=== PATIENT | female | born 1990 | race Caucasian/White ===

== ENCOUNTER 2021-09-11 19:27 | Emergency (ER) | payer OTHER, SELFPAY ==
[2021-09-11] VITALS (8 sets, daily range): BP systolic 115–131; BP diastolic 59–70; PULSE 77–103; RESP 17–31; TEMP 36.7; O2SAT 97–100; BMI 21.7
--- NOTE | 2021-09-11 19:52 | DI.RAD.S_ITS ---
PROCEDURE: XR CHEST 1V INDICATIONS: chest pain TECHNIQUE: One view of the chest was acquired. COMPARISON: None. FINDINGS: Surgical changes and devices: None. Lungs and pleura: Lungs are clear. No pleural effusions or pneumothorax. Mediastinum: Mediastinal contours appear normal. Heart size is normal. Bones and chest wall: No suspicious bony lesions. Overlying soft tissues appear unremarkable. IMPRESSION: No acute cardiopulmonary abnormality. Dictated by: Tenzin Nixon M.D. on 09/11/2021 at 20:39 Approved by: Tenzin Nixon M.D. on 09/11/2021 at 20:40
[2021-09-11 20:05] LABS: Alanine Aminotransferase 453 IU/L (<35); Albumin 4.8 g/dL (3.5-5.0); Albumin Globulin Ratio 1.5 (1.0-2.8); Alkaline Phosphatase 226 U/L (38-126); Aspartate Aminotransferase 358 IU/L (14-36); BUN Creatinine Ratio 15.9 (6-22); Bilirubin Total 1.7 mg/dL (0.2-1.3); Blood Urea Nitrogen 11 mg/dL (7-17); Calcium 9.9 mg/dL (8.4-10.2); Carbon Dioxide 29 mmol/L (22-32); Chloride 106 mmol/L (98-107); Creatine Kinase 32 U/L (30-135); Estimated Glomerular Filt Rate > 60.0 mL/min (>60); Globulin 3.1 g/dL (1.7-4.1); Glucose 115 mg/dL (70-100); HEMOLYSIS < 15 (0-50); Lipase 160 U/L (23-300); Magnesium 2.2 mg/dL (1.6-2.3); Potassium 3.6 mmol/L (3.4-5.1); Sodium 142 mmol/L (137-145); Total Protein 7.9 g/dL (6.3-8.2)
[2021-09-11 20:12] LABS: Add Manual Diff / Slide Review NO; Basophils Absolute Auto 200 /uL (0-100); Basophils Percent Auto 2.7 % (0-2); Eosinophils Absolute Auto 100 /uL (0-450); Eosinophils Percent Auto 2.5 % (2-4); Hematocrit 40.6 % (36-46); Hemoglobin 13.7 g/dL (12.0-16.0); Lymphocytes Absolute Auto 1100 /uL (1100-4500); Lymphocytes Percent Auto 19.5 % (25-40); Mean Corpuscular HGB Conc 33.8 % (30-36); Mean Corpuscular Hemoglobin 26.8 PG (26-34); Mean Corpuscular Volume 79.2 fL (80-100); Monocytes Absolute Auto 400 /uL (0-900); Monocytes Percent Auto 7.5 % (3-14); Neutrophils Absolute Auto 3900 /uL (1500-7000); Neutrophils Percent Auto 67.8 % (50-75); Platelet Count 209 X10^3/uL (150-400); Red Blood Cell Count 5.12 X10^6/uL (4.0-5.2); Red Cell Distribution Width 12.7 % (11.6-14.8); White Blood Cell Count 5.7 X10^3/uL (4.5-11.0)
[2021-09-11 20:17] LABS: Troponin I < 0.012 ng/mL (0.01-0.034)
--- NOTE | 2021-09-11 21:37 | ED.CHESTPAIN ---
HPI - Chest Pain General Chief Complaint: Chest Pain Stated Complaint: severe chest pain x24 hours/intermittent x2 months Time Seen by Provider: 09/11/21 21:22 Source: patient Mode of arrival: Ambulatory Limitations: no limitations History of Present Illness HPI narrative: Patient is a 30-year-old female who presents with chest pain. She says she has had off and on since February but has been worse over the last 24-30 hours. It is constant sign or of her chest. She says eating makes it worse. Sometimes radiates down into her stomach. She denies any nausea. She says sometimes the pain is so bad that she feels short of breath but generally does not feel short of breath with exertion. She is always able to swallow and drink but it can her immediately after she eats or up to 10 hours after she eats. Been taking ibuprofen without any relief. She is tearful. She denies any productive cough. She has no travel, and does not take control. Related Data Allergies Allergy/AdvReac Type Severity Reaction Status Date / Time neomycin Allergy Hives Verified 09/11/21 19:37 Review of Systems Review of Systems Narrative: GENERAL: Denies chills, fatigue, malaise, fever, sweats, travel HEENT: Denies sinus pain, ear pain, sore throat, difficulty swallowing, neck pain RESPIRATORY: Denies dyspnea, cough, wheezing, hemoptysis, sputum. CARDIOVASCULAR: See HPI GASTROINTESTINAL: Denies nausea, vomiting, abdominal pain, diarrhea, constipation, melena. : Denies dysuria, frequency, incontinence, hematuria, urinary retention, flank pain. MUSCULOSKELETAL: Denies weakness, joint pain, or bony pain SKIN: No rash, no erythema, no pruritus NEUROLOGIC: Denies weakness, dizziness, headache, numbness, change in speech, confusion PSYCHIATRIC: No concerning psychosocial issues. 12 point review of systems is negative except for those stated above and HPI Patient History Medical History Graves disease Social History Smoking Status: Never smoker Smoking Status: Never smoker Substance Use Type: does not use Exam Initial Vital Signs Initial Vital Signs: Vital Signs Temperature 98.0 F 09/11/21 19:37 Pulse Rate 86 09/11/21 19:37 Respiratory Rate 17 09/11/21 19:37 Blood Pressure 120/63 09/11/21 19:37 Pulse Oximetry 100 09/11/21 19:37 GENERAL: Alert tearful 30-year-old female and in no acute distress. HEENT: Head atraumatic,EOMI, pupils reactive, face symmetric, moist mucous membranes CARDIOVASCULAR: Regular rate and rhythm without murmurs, rubs or gallops. RESPIRATORY: Breath sounds equal bilaterally, no wheezes rales or rhonchi. ABDOMEN: Soft, nontender. Normoactive bowel sounds all 4 quadrants. No guarding or rebound. Negative Aranda sign EXTREMITIES: Normal range of motion, no clubbing or edema. Neurovascularly intact NEUROLOGICAL: Alert and oriented x4.Normal gait and speech. SKIN: Warm, dry, no laceration, no petechiae, no rashes or lesions. Scores HEART Score Heart Score history: Slightly Suspicious Heart Score EKG: Normal Heart Score Age: < 45 years old Heart Score risk factors: No known risk factors Heart Score troponin: < or = to normal limit Heart Score Total: 0 PERC Score Age greater than or equal to 50 years: No Heart rate greater than or equal to 100 bpm: No Room Air O2 Sat less than 95%: No Unilateral leg swelling: No Recent trauma or surgery: No Hemoptysis: No Prior PE or DVT: No Hormone Use: No Total PERC Score: 0 Course Orders Ordered: ED Orders 09/11/21 19:38 Complete Blood Count AUTO DIFF Stat Comprehensive Metabolic Panel Stat D Dimer Stat Lipase Stat Magnesium Stat Troponin & CK Cardiac Panel Stat EKG-12 Lead Stat 09/11/21 19:52 XR chest 1V Stat 09/11/21 21:55 Trop I [Troponin I] Stat 09/11/21 22:21 US abdomen limited Stat 09/11/21 22:38 EKG-12 Lead Stat 09/12/21 00:02 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) Stat 09/12/21 00:52 Urine Culture Stat Urine Microscopic Stat Discontinued Medications Sodium Chloride (Normal Saline 0.9%) 1,000 mls @ 1,000 mls/hr IV BOLUS ONE Stop: 09/11/21 22:56 Last Infusion: 09/11/21 23:15 Dose: 0 mls/hr Documented by: Admin: 09/11/21 22:08 Dose: 1,000 mls/hr Documented by: KWADWO Lactated Ringer's (Lactated Ringers) 1,000 mls @ 125 mls/hr IV CONT JAKE Last Admin: 09/11/21 23:58 Dose: 125 mls/hr Documented by: KWADWO Morphine Sulfate (Morphine 4 Mg/Ml Inj) 4 mg IV NOW ONE Stop: 09/11/21 21:37 Last Admin: 09/11/21 21:49 Dose: 4 mg Documented by: KWADWO Ondansetron HCl (Ondansetron 4 Mg/2 Ml Inj) 4 mg IV NOW ONE Stop: 09/11/21 23:54 Last Admin: 09/11/21 23:58 Dose: 4 mg Documented by: KWADWO Ondansetron HCl (Ondansetron 4 Mg/2 Ml Inj) 4 mg IV NOW ONE Stop: 09/12/21 01:13 Last Admin: 09/12/21 01:18 Dose: 4 mg Documented by: KWADWO Pantoprazole Sodium (Pantoprazole 40 Mg Vial) 40 mg IV NOW ONE Stop: 09/11/21 21:37 Last Admin: 09/11/21 21:49 Dose: 40 mg Documented by: KWADWO Vital Signs Vital signs: Vital Signs - 8 hr 09/11/21 19:37 09/11/21 21:07 09/11/21 21:21 Temperature 98.0 F Pulse Rate 86 80 77 Respiratory Rate 17 24 20 Blood Pressure 120/63 131/68 Pulse Oximetry 100 100 100 09/11/21 21:30 09/11/21 22:00 09/11/21 22:30 Temperature Pulse Rate 77 78 95 H Respiratory Rate 21 31 H Blood Pressure 116/60 115/59 L 117/63 Pulse Oximetry 100 99 99 09/11/21 23:00 09/11/21 23:30 09/12/21 00:00 Temperature Pulse Rate 103 H 102 H 122 H Respiratory Rate 20 18 15 Blood Pressure 131/70 131/66 135/69 Pulse Oximetry 100 97 100 09/12/21 00:30 09/12/21 01:03 09/12/21 01:30 Temperature Pulse Rate 110 H 106 H 105 H Respiratory Rate 16 17 16 Blood Pressure 134/72 Pulse Oximetry 99 09/12/21 02:00 Temperature Pulse Rate 101 H Respiratory Rate 19 Blood Pressure Pulse Oximetry MDM - Chest Pain Lab Data Result diagrams: 09/11/21 19:38 09/11/21 19:38 Labs: Lab Results 09/11/21 09/11/21 09/11/21 Range/Units 19:38 19:38 19:38 WBC 5.7 (4.5-11.0) X10^3/uL RBC 5.12 (4.0-5.2) X10^6/uL Hgb 13.7 (12.0-16.0) g/dL Hct 40.6 (36-46) % MCV 79.2 L (80-100) fL MCH 26.8 (26-34) PG MCHC 33.8 (30-36) % RDW 12.7 (11.6-14.8) % Plt Count 209 (150-400) X10^3/uL Neut % (Auto) 67.8 (50-75) % Lymph % (Auto) 19.5 L (25-40) % [place] % (Auto) 7.5 (3-14) % Eos % (Auto) 2.5 (2-4) % Baso % (Auto) 2.7 H (0-2) % Neut # (Auto) 3900 (4916-7649) /uL Lymph # (Auto) 1100 (9371-1162) /uL [place] # (Auto) 400 (0-900) /uL Eos # (Auto) 100 (0-450) /uL Baso # (Auto) 200 H (0-100) /uL D-Dimer < 200 (<230) ng/mL Sodium 142 (137-145) mmol/L Potassium 3.6 (3.4-5.1) mmol/L Chloride 106 (98-107) mmol/L Carbon Dioxide 29 (22-32) mmol/L BUN 11 (7-17) mg/dL Creatinine 0.69 (0.52-1.04) mg/dL Estimated GFR > 60.0 (>60) mL/min BUN/Creatinine Ratio 15.9 (6-22) Glucose 115 H (70-100) mg/dL Calcium 9.9 (8.4-10.2) mg/dL Magnesium 2.2 (1.6-2.3) mg/dL Total Bilirubin 1.7 H (0.2-1.3) mg/dL AST 358 H (14-36) IU/L ALT 453 H (<35) IU/L Alkaline Phosphatase 226 H (38-126) U/L Total Creatine Kinase 32 (30-135) U/L CK-MB (CK-2) TNP CK-MB (CK-2) Rel Index TNP Troponin I < 0.012 (0.01-0.034) ng/mL Total Protein 7.9 (6.3-8.2) g/dL Albumin 4.8 (3.5-5.0) g/dL Globulin 3.1 (1.7-4.1) g/dL Albumin/Globulin Ratio 1.5 (1.0-2.8) Lipase 160 (23-300) U/L Urine RBC (0-5/HPF) Urine WBC (0-5/HPF) Ur Squamous Epith Cells (0-5/HPF) Urine Bacteria (None) Hyaline Casts (None) Urine Mucus (Negative) Ur Culture Indicated? Micro UA Comment SARS-CoV-2 (PCR) (Negative) 09/11/21 09/12/21 09/12/21 Range/Units 21:55 00:02 00:52 WBC (4.5-11.0) X10^3/uL RBC (4.0-5.2) X10^6/uL Hgb (12.0-16.0) g/dL Hct (36-46) % MCV (80-100) fL MCH (26-34) PG MCHC (30-36) % RDW (11.6-14.8) % Plt Count (150-400) X10^3/uL Neut % (Auto) (50-75) % Lymph % (Auto) (25-40) % [place] % (Auto) (3-14) % Eos % (Auto) (2-4) % Baso % (Auto) (0-2) % Neut # (Auto) (2642-9534) /uL Lymph # (Auto) (0004-7478) /uL [place] # (Auto) (0-900) /uL Eos # (Auto) (0-450) /uL Baso # (Auto) (0-100) /uL D-Dimer (<230) ng/mL Sodium (137-145) mmol/L Potassium (3.4-5.1) mmol/L Chloride (98-107) mmol/L Carbon Dioxide (22-32) mmol/L BUN (7-17) mg/dL Creatinine (0.52-1.04) mg/dL Estimated GFR (>60) mL/min BUN/Creatinine Ratio (6-22) Glucose (70-100) mg/dL Calcium (8.4-10.2) mg/dL Magnesium (1.6-2.3) mg/dL Total Bilirubin (0.2-1.3) mg/dL AST (14-36) IU/L ALT (<35) IU/L Alkaline Phosphatase (38-126) U/L Total Creatine Kinase (30-135) U/L CK-MB (CK-2) CK-MB (CK-2) Rel Index Troponin I < 0.012 (0.01-0.034) ng/mL Total Protein (6.3-8.2) g/dL Albumin (3.5-5.0) g/dL Globulin (1.7-4.1) g/dL Albumin/Globulin Ratio (1.0-2.8) Lipase (23-300) U/L Urine RBC 0-1/hpf (0-5/HPF) Urine WBC 0-1/hpf (0-5/HPF) Ur Squamous Epith Cells 0-1 /hpf (0-5/HPF) Urine Bacteria Occasional (0-1) (None) Hyaline Casts 0-1/lpf (None) Urine Mucus 3+ H (Negative) Ur Culture Indicated? Specimen cultured Micro UA Comment . SARS-CoV-2 (PCR) Negative (Negative) Point of Care Testing Test Results Negative Urine Dip Bedside Urine Glucose Negative Bedside Urine Bilirubin ++ 2 Bedside Urine Ketone ++ 40 Urine Specific [place] 1.025 Bedside Urine Occult Blood - Negative Bedside Urine pH 6.0 Bedside Urine Protein + 30 Bedside Urine Urobilinogen 1+ 2mg Bedside Urine Nitrite - Negative Bedside Urine Leukocytes +/- 15 Esterase Imaging Data Chest x-ray: Radiologist's Impression: PROCEDURE:? XR CHEST 1V ? INDICATIONS:? chest pain ? TECHNIQUE:? One view of the chest was acquired.? ? COMPARISON:? None. ? FINDINGS:? ? Surgical changes and devices:? None.? ? Lungs and pleura:? Lungs are clear.? No pleural effusions or pneumothorax.? ? Mediastinum:? Mediastinal contours appear normal.? Heart size is normal.? ? Bones and chest wall:? No suspicious bony lesions.? Overlying soft tissues appear unremarkable.? ? IMPRESSION:? No acute cardiopulmonary abnormality. ? ? Dictated by: Tenzin Nixon M.D. on 09/11/2021 at 20:3 US - abdomen: Radiologist's Impression: PROCEDURE: US ABDOMEN LIMITED ? INDICATIONS:? ruq, elevated bili and liver enzymes ? TECHNIQUE:? Real-time focused scanning was performed of the abdomen, with image documentation.? ? COMPARISON:? [facility], CR, XR CHEST 1V, 09/11/2021, 20:03. ? FINDINGS:? Multiple gallstones are seen within the gallbladder.? The gallbladder appears distended.? No findings of gallstones or sludge are seen.? The gallbladder wall is not thickened, measuring 3 mm or less.? No specific pericholecystic fluid is seen.? The sonographic Aranda sign cannot be assessed, secondary to the patient's pain medication. ? The common bile duct measures at the upper limits of normal at 7 mm. ? The pancreas is partially seen. ? The liver is normal in size and demonstrates no focal lesions. ? ? IMPRESSION:? Distended gallbladder, with multiple gallstones within it.? ? No additional sonographic signs of cholecystitis are seen. ? The common bile duct measures at the upper limits of normal. ? Note: Concordant preliminary findings given by the compliance field technician upon the completion of the examination to Dr. Dee at 11:04 p.m. on September 11, 2021. ? ? ? Dictated by: Mando Gregorio M.D. on 09/11/2021 at 22:27 ? ? ECG Data Interpretation: EKG 1. Normal sinus rhythm rate [address] changes or T-wave inversions p.r. interval 120 EKG 2. Sinus rhythm rate 82 no changes although she does have T-wave inversion noted in V2 MDM Narrative Medical decision making narrative: Young healthy 30-year-old presenting with epigastric pain burning in her chest. 2- troponins a flow heart score negative D-dimer. Blood work does show significantly elevated liver enzymes minimally elevated bilirubin at 1.7. She is on medication Methimazole for Graves disease which can cause elevated liver enzymes. However based on patient's symptoms and ultrasound report along with blood work of is more likely acute cholelithiasis concern for choledocholithiasis. Patient continues to have nausea vomiting she is given Zofran however pain is controlled with morphine. She is agreeable for transfer. [id number]: Dr. Guevara general surgery updated patient's test results does recommend transferring for ERCP, MR is not available tomorrow due to the holiday. 12:04am Dr. Herrera, GI at [facility] has been updated on patient's symptoms test results and is happy to have patient be transferred admit to hospitalist 12:30am Dr. Long, updated patient's symptoms test results is happy to accept patient for transfer Discharge Plan Departure Patient Disposition: [facility] Clinical Impression: Cholelithiasis
[2021-09-11] MEDS: MORPHINE 4 MG/ML INJ IV (21:49)
[2021-09-11] MEDS: PANTOPRAZOLE 40 MG VIAL IV (21:49)
[2021-09-11 22:00] LABS: D Dimer < 200 ng/mL (<230)
[2021-09-11] MEDS: SODIUM CHLORIDE 0.9% 1,000 ML 1000 ML IV (22:08)
--- NOTE | 2021-09-11 22:21 | DI.US.S_ITS ---
PROCEDURE: US ABDOMEN LIMITED INDICATIONS: ruq, elevated bili and liver enzymes TECHNIQUE: Real-time focused scanning was performed of the abdomen, with image documentation. COMPARISON: [facility], CR, XR CHEST 1V, 09/11/2021, 20:03. FINDINGS: Multiple gallstones are seen within the gallbladder. The gallbladder appears distended. No findings of gallstones or sludge are seen. The gallbladder wall is not thickened, measuring 3 mm or less. No specific pericholecystic fluid is seen. The sonographic Aranda sign cannot be assessed, secondary to the patient's pain medication. The common bile duct measures at the upper limits of normal at 7 mm. The pancreas is partially seen. The liver is normal in size and demonstrates no focal lesions. IMPRESSION: Distended gallbladder, with multiple gallstones within it. No additional sonographic signs of cholecystitis are seen. The common bile duct measures at the upper limits of normal. Note: Concordant preliminary findings given by the instructional designer upon the completion of the examination to Dr. Dee at 11:04 p.m. on September 11, 2021. Dictated by: Mando Gregorio M.D. on 09/11/2021 at 22:27 Approved by: Mando Gregorio M.D. on 09/11/2021 at 22:28
[2021-09-11 22:31] LABS: Troponin I < 0.012 ng/mL (0.01-0.034)
[2021-09-11] MEDS: ONDANSETRON 4 MG/2 ML INJ IV (23:58)
[2021-09-11] MEDS: LACTATED RINGERS 1,000 ML 125 ML IV (23:58)
[2021-09-12] VITALS: BP 135/69; PULSE 122; RESP 15; O2SAT 100
[2021-09-12 00:30] VITALS: BP 134/72; PULSE 110; RESP 16; O2SAT 99
[2021-09-12 00:57] LABS: COVID19 - ADMIT (NP swab/PCR) Negative (Negative)
[2021-09-12 01:03] VITALS: PULSE 106; RESP 17
[2021-09-12 01:10] LABS: Bacteria Urine Occasional (0-1); Hyaline Casts Urine 0-1/LPF; Mucus Urine 3+ (Negative); RBC Urine 0-1/HPF (0-5/HPF); Squamous Epithelial Cell Urine 0-1 /HPF (0-5/HPF); WBC Urine 0-1/HPF (0-5/HPF)
[2021-09-12 01:13] LABS: Culture Indicated Urine Specimen Cultured
[2021-09-12] MEDS: ONDANSETRON 4 MG/2 ML INJ IV (01:18)
[2021-09-12 01:30] VITALS: PULSE 105; RESP 16
[2021-09-12 02:00] VITALS: PULSE 101; RESP 19
--- NOTE | 2021-10-09 15:57 | PC.NURSE ---
late entry- per RN IV medications and fluids continued on patient upon transfer to another hospital
== END 2021-09-12 02:33 | disposition short-term general hospital (02) ==
PROVIDERS: Emergency Provider Emergency Medicine
DX: K80.20 Calculus of gallbladder without cholecystitis without obstruction (principal); Z20.822 Contact with and (suspected) exposure to COVID-19
CPT/HCPCS: 36415; 71045; 76705; 80053; 81003; 81015; 81025; 82550; 83690; 83735; 84484; 85025; 85379; 87086; 87635; 93005; 96361; 96374; 96375; 96376; 99284; C9803; C9113; J2270; J2405